=== PATIENT | female | born 1965 | race American Indian/Alaskan Native ===

== ENCOUNTER 2017-10-06 08:40 | Day surgery (SDC) | payer BC ==
[2017-10-06 09:38] VITALS: BMI 29.9
[2017-10-06] MEDS ORDERED: Lactated Ringer's 1,000 ML IV ONE (12:00)
[2017-10-06] MEDS ORDERED: Propofol 10 mg/ml Inj (20 ML) ONE ×2 (12:06→12:20)
[2017-10-06 13:02] VITALS: TEMP 98.4
[2017-10-06 13:14] VITALS: O2SAT 100
[2017-10-06 13:40] VITALS: BP 150/90; PULSE 69; RESP 11
== END 2017-10-06 13:50 | disposition home or self-care (01) ==
LOC: C.ENDO 08:40
PROVIDERS: ATTEND Internal Medicine Gastroenterology
DX: K29.70 Gastritis, unspecified, without bleeding (principal); R10.13 Epigastric pain; R19.4 Change in bowel habit; Z88.0 Allergy status to penicillin; Z87.891 Personal history of nicotine dependence; K44.9 Diaphragmatic hernia without obstruction or gangrene; K64.1 Second degree hemorrhoids
CPT/HCPCS: 43239; 45378; 88305; 88313; 88342; J2704; J7120